=== PATIENT | female | born 1935 | race Caucasian/White ===

== ENCOUNTER 2020-04-25 02:27 | Emergency (ER) | payer MEDICARE ==
[~2020-04-25] VITALS: Ht 162.6 cm; Wt 95.5 kg
[~2020-04-25 02:27] MED LIST: ALENDRONATE SOD70 MG PO; FENOFIBRATE145 MG PO; HYDROCHLOROT12.5 MG PO; LEVOTHYROXIN125 MCG PO; METFORMIN500 M2 PO; NAPROSYN500 MG PO; TORADOL OR; ZESTRIL10 M1 PO
[2020-04-25] MEDS ORDERED: OZEMPIC2 MG/1.5 M SC (03:31)
[2020-04-25] MEDS ORDERED: MYRBETRIQ25 MG PO (03:39)
[2020-04-25] MEDS ORDERED: TORADOL PO (04:05)
[2020-04-25 04:50] VITALS: BP 153/81
== END 2020-04-25 04:50 | disposition home or self-care (01) ==
LOC: ED 02:27
DX: S70.02XA Contusion of left hip, initial encounter (principal); S80.02XA Contusion of left knee, initial encounter; E11.9 Type 2 diabetes mellitus without complications; I10 Essential (primary) hypertension; Z79.84 Long term (current) use of oral hypoglycemic drugs; W18.39XA Other fall on same level, initial encounter; Y92.003 Bedroom of unspecified non-institutional (private) residence as the place of occurrence of the external cause

== ENCOUNTER 2023-04-25 10:39 | Emergency (ER) | payer MEDICARE ==
[2023-04-25] VITALS (9 sets, daily range): BP systolic 105–127; BP diastolic 40–94
[~2023-04-25] VITALS: Ht 162.6 cm; Wt 100.0 kg
[~2023-04-25 10:39] MED LIST changes: +MYRBETRIQ25 MG PO; +OZEMPIC2 MG/1.5 M SC; +TORADOL PO
[2023-04-25 11:52] LABS: BASO% 0.6 % (0-3); EOS% 1.3 % (0-8); HEMATOCRIT 40.4 % (37.0-47.0); HEMOGLOBIN 13.2 g/dl (12.0-16.0); IMMATURE GRANULOCYTES 0.7 % (0.0-5.0); LYMPH% 9.3 % (15-41); MEAN CELL VOLUME 87.8 fL CALC (80.0-100.0); MEAN CORPUSCULAR HGB 28.7 pG CALC (26.0-32.0); MEAN CORPUSCULAR HGB CONC 32.7 g/dL CAL (32.0-36.0); MONO% 5.5 % (2-13); NEUT# 5.69 thou/uL (2.00-7.15); NEUT% 82.6 % (42-76); RED BLOOD COUNT 4.6 mill/uL (4.20-5.60); RED CELL DISTRI WIDTH 14.9 % (11.5-15.5)
[2023-04-25 12:02] LABS: ALBUMIN 3.8 g/dL (3.2-5.0); ALKALINE PHOSPHATASE 65 u/l (38-126); ANION GAP 13 (6-22 (CALC)); BILIRUBIN, TOTAL 0.5 mg/dL (0.02-1.3); BUN 13 mg/dL (8-23); BUN/CREATININE RATIO 21 (12-20 (CALC)); CHLORIDE 105 mmol/l (95-108); CREATININE 0.6 mg/dL (0.5-1.0); GFR FOR AFR.AMER. > 60 ML/MIN (>=60 (CALC)); GFR OTHER RACES > 60 ML/MIN (>=60 (CALC)); POTASSIUM 3.6 mmol/l (3.5-5.1); SGOT/AST 31 u/l (9-36); SODIUM 136 mmol/l (137-146); TOTAL PROTEIN 6.6 g/dL (6.3-8.2)
[2023-04-25 12:05] LABS: CARBON DIOXIDE 22 mmol/l (22-30)
[2023-04-25 12:31] LABS: URINE BILIRUBIN - DIPSTICK Negative (NEGATIVE); URINE BLOOD DIPSTICK Trace-lysed (NEGATIVE); URINE GLUCOSE - DIPSTICK Negative (NEGATIVE); URINE KETONE Negative (NEGATIVE); URINE NITRITE - DIPSTICK Negative (Negative); URINE PH 6.5 (4.5-8.0); URINE PROTEIN - DIPSTICK 30 mg/dL (NEG-TRACE); URINE UROBILINOGEN - DIPSTICK 0.2 E.U./dL (0.2)
[2023-04-25 12:32] LABS: URINE COLOR Yellow; URINE LEUK ESTERASE Large (NEGATIVE)
[2023-04-25 12:47] LABS: URINE WBC 50-100 WBC/hpf (0-5)
[2023-04-25 12:48] LABS: URINE EPITHELIAL CELLS FEW EPI/hpf (0-FEW)
[2023-04-25 12:49] LABS: URINE BACTERIA MODERATE hpf; URINE RBC 0-2 RBC/hpf (0-5)
[2023-04-25] MEDS ORDERED: BUSPIRONE5 MG PO (12:59)
[2023-04-25] MEDS ORDERED: TRAMADOL HCL50 MG PO (13:00)
[2023-04-25] MEDS ORDERED: TRAZODONE50 MG PO (13:03)
[2023-04-25] MEDS ORDERED: GLIMEPIRIDE2 MG PO (13:04)
[2023-04-25] MEDS ORDERED: AMLODIPINE BESYL5 MG PO (13:05)
[2023-04-25] MEDS ORDERED: BACTRIM DS1 TAB PO (13:25)
== END 2023-04-25 14:16 | disposition home or self-care (01) ==
LOC: ED 10:39
PROVIDERS: Family Medicine
DX: S30.0XXA Contusion of lower back and pelvis, initial encounter (principal); R07.9 Chest pain, unspecified; N39.0 Urinary tract infection, site not specified; M19.90 Unspecified osteoarthritis, unspecified site; I10 Essential (primary) hypertension; E11.9 Type 2 diabetes mellitus without complications; W22.09XA Striking against other stationary object, initial encounter; Z79.84 Long term (current) use of oral hypoglycemic drugs